=== PATIENT | male | born 1960 | race African-American/Black ===

== ENCOUNTER 2017-12-01 13:01 | Inpatient (IN) | payer MEDICARE, MEDICAID ==
[~2017-12-01] VITALS: Ht 177.8 cm; Wt 100.3 kg
[2017-12-01] MEDS ORDERED: ASPIRIN 81MG TABLET PO ONE (14:00)
[2017-12-01] MEDS ORDERED: FUROSEMIDE 40MG/4ML VIAL IV ONE (14:00)
[2017-12-01 14:19] LABS: MEAN PLATELET VOLUME 7.3 fl (7.4-10.4); RED CELL DISTRIBUTION WIDTH 18.6 % (11.6-14.6)
[2017-12-01 14:25] LABS: INR 1.1; PARTIAL THROMBOPLASTIN TIME 24.6 sec (23.4-31.0); PROTHROMBIN TIME 10.7 sec (9.1-11.1)
[2017-12-01 14:26] LABS: CHLORIDE 111 mEq/L (98-107); ETHANOL BLOOD < 10 mg/dL
[2017-12-01 14:46] LABS: HEMOGLOBIN. 7.6 g/dL (14.0-18.0)
[2017-12-01 14:47] LABS: HEMATOCRIT. 30.4 % (42.0-52.0); MEAN CORPUSCULAR HEMOGLOBIN 23.5 pg (28.0-32.0); MEAN CORPUSCULAR VOLUME 94.9 fL (80.0-94.0)
[2017-12-01 14:48] LABS: PLATELET 128 x1000/uL (130-400)
[2017-12-01 15:00] LABS: PLATELET ESTIMATE DECREASED
[2017-12-01 16:15] LABS: CLARITY URINE CLEAR (CLEAR); COLOR URINE YELLOW (YELLOW); KETONES URINE NEGATIVE (NEGATIVE); LEUKOCYTE ESTERASE URINE NEGATIVE (NEGATIVE); NITRITE URINE NEGATIVE (NEGATIVE); OCCULT BLOOD URINE NEGATIVE (NEGATIVE); PROTEIN URINE NEGATIVE (NEGATIVE); SPECIFIC GRAVITY URINE 1.011 (1.005-1.030); UROBILINOGEN URINE 0.2 E.U./dL (0.2-1.0)
[2017-12-01 16:36] LABS: *AMPHETAMINES SCREEN URINE NEGATIVE (NEGATIVE); *BARBITURATES SCREEN URINE NEGATIVE (NEGATIVE); *BENZODIAZEPINES SCREEN URINE NEGATIVE (NEGATIVE); *COCAINE SCREEN URINE NEGATIVE (NEGATIVE)
[2017-12-01 16:37] LABS: CANNABINOID URINE SCREEN NEGATIVE (NEGATIVE); METHADONE URINE SCREEN NEGATIVE (NEGATIVE); OPIATES URINE SCREEN NEGATIVE (NEGATIVE); PHENCYCLIDINE URINE SCREEN NEGATIVE (NEGATIVE)
[2017-12-01] MEDS ORDERED: ACETAMINOPHEN 650MG/20.3ML UDC GT PRN (18:45)
[2017-12-01] MEDS ORDERED: NA PHOS,M-B/NA PHOS,DI-BA ENEMA 118ML PR PRN (18:45)
[2017-12-01] MEDS ORDERED: HYDROCODONE/ACETAMINOPHEN 5/325MG TABLET PO PRN (18:45)
[2017-12-01] MEDS ORDERED: IPRATROPIUM/ALBUTEROL 0.5-3(2.5)MG/3ML NEB INH PRN (18:45)
[2017-12-01] MEDS ORDERED: DOCUSATE SODIUM 100MG CAPSULE PO PRN (18:45)
[2017-12-01] MEDS ORDERED: ONDANSETRON HCL 4MG/2ML INJ IV PRN (18:45)
[2017-12-01] MEDS ORDERED: MAGNESIUM/ALUMINUM HYDROXIDE/SIMETHICONE 30ML UDC PO PRN (18:45)
[2017-12-01] MEDS ORDERED: ACETAMINOPHEN 650MG SUPP PR PRN (18:45)
[2017-12-01 22:00] VITALS: BP 164/78
[2017-12-01 22:36] VITALS: BP 164/78
[2017-12-01] MEDS ORDERED: HYDR100T26 PO (22:53)
[2017-12-01] MEDS ORDERED: ASPI-986 PO (22:55)
[2017-12-01] MEDS ORDERED: NIFE100P10 PO ×2 (22:57→23:44)
[2017-12-01] MEDS ORDERED: LABE300T3 PO (23:00)
[2017-12-01] MEDS ORDERED: PRAV20TA57 PO (23:03)
[2017-12-01] MEDS ORDERED: HYDR25TA PO (23:03)
[2017-12-01] MEDS ORDERED: COLC0.6C3 PO (23:04)
[2017-12-01] MEDS ORDERED: MEDICATION NOT ON FORMULARY EA (Colchicine 0.6 MG) PO SCH (23:45)
[2017-12-01] MEDS ORDERED: LABETALOL HCL PO SCH (23:45)
[2017-12-01] MEDS ORDERED: NIFE20CA PO (23:46)
[2017-12-02] VITALS (21 sets, daily range): BP systolic 117–157; BP diastolic 62–88
[2017-12-02] MEDS: SODIUM CHLORIDE 0.9% INJ 3ML FLUSH IVF SCH ×4 (00:14→21:13)
[2017-12-02] MEDS: LABETALOL HCL 300MG TABLET PO SCH ×3 (06:45→21:13)
[2017-12-02 07:53] LABS: CHLORIDE 112 mEq/L (98-107)
[2017-12-02 07:58] LABS: HDL CHOLESTEROL 35 mg/dL (40-59); LDL CHOLESTEROL 136 mg/dL (5-100)
[2017-12-02 08:17] LABS: HEMATOCRIT. 29.6 % (42.0-52.0); HEMOGLOBIN. 7.4 g/dL (14.0-18.0); MEAN CORPUSCULAR HEMOGLOBIN 23.7 pg (28.0-32.0); MEAN CORPUSCULAR VOLUME 95.6 fL (80.0-94.0); RED BLOOD CELL COUNT 3.08 mill/uL (4.7-6.1)
[2017-12-02 08:19] LABS: MEAN PLATELET VOLUME 7.1 fl (7.4-10.4); PLATELET 128 x1000/uL (130-400); RED CELL DISTRIBUTION WIDTH 17.5 % (11.6-14.6)
[2017-12-02] MEDS ORDERED: COLCHICINE 0.6MG TABLET PO SCH (09:00)
[2017-12-02] MEDS ORDERED: FUROSEMIDE 40MG/4ML VIAL IV SCH (09:00)
[2017-12-02] MEDS: SODIUM CHLORIDE 0.45% 1,000 ML IV SCH ×2 (11:52→19:09)
[2017-12-02] MEDS: ALLOPURINOL 100 MG TABLET PO SCH (12:00)
[2017-12-02 14:09] LABS: PLATELET ESTIMATE DECREASED
[2017-12-02 15:49] LABS: CLARITY URINE CLEAR (CLEAR); COLOR URINE YELLOW (YELLOW); KETONES URINE NEGATIVE (NEGATIVE); LEUKOCYTE ESTERASE URINE NEGATIVE (NEGATIVE); NITRITE URINE NEGATIVE (NEGATIVE); OCCULT BLOOD URINE 1+ (NEGATIVE); PROTEIN URINE TRACE (NEGATIVE); SPECIFIC GRAVITY URINE 1.014 (1.005-1.030); UROBILINOGEN URINE 0.2 E.U./dL (0.2-1.0)
[2017-12-02] MEDS: ASPIRIN 81MG TABLET PO SCH (19:10)
[2017-12-02] MEDS ORDERED: MEDICATION NOT ON FORMULARY EA (Pravastatin Sodium 1 TAB) PO SCH (21:00)
[2017-12-02] MEDS: ATORVASTATIN CALCIUM 10MG TABLET PO SCH (21:13)
[2017-12-03] VITALS (49 sets, daily range): BP systolic 126–170; BP diastolic 63–103
[2017-12-03] MEDS: SODIUM CHLORIDE 0.45% 1,000 ML IV SCH ×3 (00:37→16:19)
[2017-12-03] MEDS: SODIUM CHLORIDE 0.9% INJ 3ML FLUSH IVF SCH ×3 (06:14→22:00)
[2017-12-03] MEDS: LABETALOL HCL 300MG TABLET PO SCH ×3 (06:14→20:38)
[2017-12-03] MEDS: ALLOPURINOL 100 MG TABLET PO SCH (09:48)
[2017-12-03] MEDS: ASPIRIN 81MG TABLET PO SCH (09:48)
[2017-12-03] MEDS: CEFEPIME 1,000 MG in DEXTROSE 5% WATER 50 ML IV SCH (15:21)
[2017-12-03] MEDS: CLONIDINE 0.1MG TABLET PO PRN (16:18)
[2017-12-03 16:30] LABS: CHLORIDE 111 mEq/L (98-107)
[2017-12-03 16:44] LABS: PHOSPHORUS 4.6 mg/dL (2.5-4.9)
[2017-12-03 16:48] LABS: CREATINE KINASE 1076 IU/L (39-308)
[2017-12-03 16:51] LABS: HEMATOCRIT. 31.6 % (42.0-52.0); HEMOGLOBIN. 8.8 g/dL (14.0-18.0); MEAN CORPUSCULAR VOLUME 96.5 fL (80.0-94.0); MEAN PLATELET VOLUME 7.2 fl (7.4-10.4); PLATELET 125 x1000/uL (130-400); RED BLOOD CELL COUNT 3.27 mill/uL (4.7-6.1); RED CELL DISTRIBUTION WIDTH 18.4 % (11.6-14.6)
[2017-12-03 17:09] LABS: PLATELET ESTIMATE DECREASED
[2017-12-03] MEDS: ATORVASTATIN CALCIUM 10MG TABLET PO SCH (20:37)
[2017-12-03] MEDS: ACETAMINOPHEN 325MG TABLET PO PRN (20:38)
[2017-12-04] VITALS (24 sets, daily range): BP systolic 132–165; BP diastolic 75–98
[2017-12-04] MEDS: SODIUM CHLORIDE 0.45% 1,000 ML IV SCH ×6 (02:35→23:30)
[2017-12-04] MEDS: SODIUM CHLORIDE 0.9% INJ 3ML FLUSH IVF SCH ×3 (06:06→22:00)
[2017-12-04] MEDS: LABETALOL HCL 300MG TABLET PO SCH ×3 (06:16→21:27)
[2017-12-04] MEDS: CEFEPIME 1,000 MG in DEXTROSE 5% WATER 50 ML IV SCH (09:00)
[2017-12-04] MEDS: ALLOPURINOL 100 MG TABLET PO SCH (09:00)
[2017-12-04] MEDS: ASPIRIN 81MG TABLET PO SCH (09:00)
[2017-12-04 09:51] LABS: HEMATOCRIT. 31.5 % (42.0-52.0); HEMOGLOBIN. 8.5 g/dL (14.0-18.0); MEAN CORPUSCULAR HEMOGLOBIN 25.8 pg (28.0-32.0); MEAN PLATELET VOLUME 7.1 fl (7.4-10.4); PLATELET 116 x1000/uL (130-400); RED BLOOD CELL COUNT 3.28 mill/uL (4.7-6.1)
[2017-12-04 09:56] LABS: CHLORIDE 112 mEq/L (98-107)
[2017-12-04 09:59] LABS: PHOSPHORUS 4.3 mg/dL (2.5-4.9)
[2017-12-04 10:55] LABS: RED CELL DISTRIBUTION WIDTH 17.6 % (11.6-14.6)
[2017-12-04 10:57] LABS: PLATELET ESTIMATE SLIGHTLY DECREASED
[2017-12-04] MEDS: ATORVASTATIN CALCIUM 10MG TABLET PO SCH (21:27)
[2017-12-05] VITALS (26 sets, daily range): BP systolic 116–167; BP diastolic 38–96
[2017-12-05] MEDS: CLONIDINE 0.1MG TABLET PO PRN (01:18)
[2017-12-05] MEDS: ACETAMINOPHEN 325MG TABLET PO PRN (04:35)
[2017-12-05] MEDS: SODIUM CHLORIDE 0.9% INJ 3ML FLUSH IVF SCH ×3 (06:00→21:46)
[2017-12-05] MEDS: SODIUM CHLORIDE 0.45% 1,000 ML IV SCH ×4 (06:10→15:04)
[2017-12-05] MEDS: LABETALOL HCL 300MG TABLET PO SCH ×3 (06:18→21:46)
[2017-12-05 07:40] LABS: PHOSPHORUS 3.6 mg/dL (2.5-4.9)
[2017-12-05 07:41] LABS: RED BLOOD CELL COUNT 2.61 mill/uL (4.7-6.1)
[2017-12-05 07:42] LABS: HEMOGLOBIN. 7.5 g/dL (14.0-18.0)
[2017-12-05 07:43] LABS: HEMATOCRIT. 24.6 % (42.0-52.0); MEAN CORPUSCULAR HEMOGLOBIN 26.3 pg (28.0-32.0); MEAN CORPUSCULAR VOLUME 96.6 fL (80.0-94.0); MEAN PLATELET VOLUME 7.6 fl (7.4-10.4); PLATELET 120 x1000/uL (130-400); RED CELL DISTRIBUTION WIDTH 17.5 % (11.6-14.6)
[2017-12-05 08:22] LABS: A/G RATIO 1.3 (0.7-1.7); ALBUMIN 3.7 g/dL (2.9-4.4); ALPHA-1-GLOBULIN 0.2 g/dL (0.0-0.4); ALPHA-2-GLOBULIN 0.8 g/dL (0.4-1.0); BETA GLOBULIN 0.9 g/dL (0.7-1.3); GAMMA GLOBULINS 0.9 g/dL (0.4-1.8); GLOBULIN TOTAL 2.8 g/dL (2.2-3.9); M-SPIKE Not Observed g/dL (Not Observed); TOTAL PROTEIN SERUM 6.5 g/dL (6.0-8.5)
[2017-12-05] MEDS: CEFEPIME 1,000 MG in DEXTROSE 5% WATER 50 ML IV SCH (08:26)
[2017-12-05] MEDS: ASPIRIN 81MG TABLET PO SCH (08:27)
[2017-12-05] MEDS: ALLOPURINOL 100 MG TABLET PO SCH (08:27)
[2017-12-05] MEDS ORDERED: KCL 20MEQ/100ML PREMIX 100 ML IV NR (08:30)
[2017-12-05] MEDS ORDERED: NON FORMULARY PATIENT HOME MED EA PO SCH (09:00)
[2017-12-05 11:43] LABS: PLATELET ESTIMATE DECREASED
[2017-12-05] MEDS: CHLORAMBUCIL 2 MG PO SCH (13:35)
[2017-12-05] MEDS: ATORVASTATIN CALCIUM 10MG TABLET PO SCH (21:45)
[2017-12-06] VITALS (20 sets, daily range): BP systolic 121–175; BP diastolic 72–94
[2017-12-06] MEDS: SODIUM CHLORIDE 0.45% 1,000 ML IV SCH ×4 (01:04→20:44)
[2017-12-06] MEDS: SODIUM CHLORIDE 0.9% INJ 3ML FLUSH IVF SCH ×3 (06:00→20:44)
[2017-12-06] MEDS: LABETALOL HCL 300MG TABLET PO SCH ×3 (06:43→20:43)
[2017-12-06 07:36] LABS: HEMATOCRIT. 24.9 % (42.0-52.0); HEMOGLOBIN. 7.5 g/dL (14.0-18.0); MEAN CORPUSCULAR HEMOGLOBIN 26.6 pg (28.0-32.0); MEAN CORPUSCULAR VOLUME 96.3 fL (80.0-94.0); RED BLOOD CELL COUNT 2.64 mill/uL (4.7-6.1); RED CELL DISTRIBUTION WIDTH 17.7 % (11.6-14.6)
[2017-12-06 07:37] LABS: MEAN PLATELET VOLUME 7.8 fl (7.4-10.4); PLATELET 115 x1000/uL (130-400)
[2017-12-06 08:14] LABS: PLATELET ESTIMATE DECREASED
[2017-12-06] MEDS: ASPIRIN 81MG TABLET PO SCH (09:07)
[2017-12-06] MEDS: ALLOPURINOL 100 MG TABLET PO SCH (09:07)
[2017-12-06] MEDS: CEFEPIME 1,000 MG in DEXTROSE 5% WATER 50 ML IV SCH (09:07)
[2017-12-06] MEDS: CHLORAMBUCIL 2 MG PO SCH (10:54)
[2017-12-06] MEDS: ATORVASTATIN CALCIUM 10MG TABLET PO SCH (20:43)
[2017-12-06] MEDS ORDERED: ATOR10TA PO (22:42)
[2017-12-06] MEDS ORDERED: ASPI-1160 PO (22:43)
[2017-12-06] MEDS ORDERED: ALLO100T PO (22:43)
[2017-12-06] MEDS ORDERED: LABE300T3 PO (22:43)
[2017-12-06] MEDS ORDERED: CHLO2TAB PO (22:43)
[2017-12-06] MEDS ORDERED: CEFE1FRO2 IV (22:45)
[2017-12-07] VITALS: BP 156/87
== END 2017-12-07 00:29 | disposition short-term general hospital (02) | DRG 64 ==
LOC: ER 13:01 → EDBEDREQTM 16:25 → 5WST 16:25 → EDBEDREQ 16:25 → 5WST 18:38 → UNDOADMIN 18:38 → ENRESERV 19:34 → MICUSO 12-02 13:00 → 5EST 12-06 11:37
PROVIDERS: ADMIT Family Medicine; ATTEND Family Medicine
DX: I63.9 Cerebral infarction, unspecified (principal); G93.41 Metabolic encephalopathy; N17.0 Acute kidney failure with tubular necrosis; E87.0 Hyperosmolality and hypernatremia; C92.10 Chronic myeloid leukemia, BCR/ABL-positive, not having achieved remission; N39.0 Urinary tract infection, site not specified; M62.82 Rhabdomyolysis; G81.91 Hemiplegia, unspecified affecting right dominant side; B96.20 Unspecified Escherichia coli [E. coli] as the cause of diseases classified elsewhere; D63.0 Anemia in neoplastic disease; R79.89 Other specified abnormal findings of blood chemistry; R74.8 Abnormal levels of other serum enzymes; I10 Essential (primary) hypertension; E78.5 Hyperlipidemia, unspecified; I12.9 Hypertensive chronic kidney disease with stage 1 through stage 4 chronic kidney disease, or unspecified chronic kidney disease; L89.90 Pressure ulcer of unspecified site, unspecified stage; M10.9 Gout, unspecified; N28.1 Cyst of kidney, acquired; D69.6 Thrombocytopenia, unspecified; D64.9 Anemia, unspecified; N18.9 Chronic kidney disease, unspecified; Z86.73 Personal history of transient ischemic attack (TIA), and cerebral infarction without residual deficits; Z82.49 Family history of ischemic heart disease and other diseases of the circulatory system
CPT/HCPCS: 36415; 70551; 71045; 71250; 72146; 72148; 74176; 76770; 80048; 80061; 80305; 82550; 83615; 83735; 83880; 84100; 84134; 84155; 84165; 84484; 84550; 85384; 87077; 87186; 92523; 93005; 93306; 93880; 93970; 96374; 97110; 97163; 97167; 97530; 97535; 99285; G0482; J0692; J1940; J3480; J7060; A4315

== ENCOUNTER 2019-04-03 16:41 | Inpatient (IN) | payer MEDICARE, MEDICAID ==
[~2019-04-03] VITALS: Ht 177.8 cm; Wt 88.0 kg
[~2019-04-03 16:41] MED LIST: ALLO100T PO; ASPI-1160 PO; ASPI-986 PO; ATOR10TA PO; FURO-151 PO; HYDR100T26 PO; LABE300T3 PO; NIFE20CA PO; PRAV20TA57 PO; [UNRECOGNIZED DRUG - CODE] PO
[2019-04-03] MEDS ORDERED: ONDANSETRON HCL 4MG/2ML INJ IV STA (17:04)
[2019-04-03 17:23] LABS: PROTHROMBIN TIME 10.9 sec (9.6-11.0)
[2019-04-03 17:24] LABS: HEMATOCRIT. 21.8 % (42.0-52.0); MEAN CORPUSCULAR HEMOGLOBIN 25.4 pg (28.0-32.0); MEAN CORPUSCULAR VOLUME 103.4 fL (80.0-94.0); MEAN PLATELET VOLUME 7.2 fl (7.4-10.4); PLATELET 59 x1000/uL (130-400); RED BLOOD CELL COUNT 2.11 mill/uL (4.7-6.1); RED CELL DISTRIBUTION WIDTH 31.7 % (11.6-14.6)
[2019-04-03 17:25] LABS: CHLORIDE 119 mEq/L (98-107)
[2019-04-03 17:29] LABS: ETHANOL BLOOD < 10 mg/dL
[2019-04-03 17:32] LABS: HEMOGLOBIN. 5.4 g/dL (14.0-18.0); LDL CHOLESTEROL 83 mg/dL (5-100)
[2019-04-03 18:39] LABS: PLATELET ESTIMATE DECREASED
[2019-04-03] MEDS ORDERED: SODIUM BICARBONATE 8.4% 1 MEQ/ML 50ML SYR IV SCH (18:45)
[2019-04-03] MEDS ORDERED: INSULIN REGULAR (HUMULIN R) 300UNITS/3ML IV SCH (18:45)
[2019-04-03] MEDS ORDERED: CALCIUM CHLORIDE 1GM/10ML SYR IV SCH (18:45)
[2019-04-03] MEDS ORDERED: DEXTROSE 50% WATER 50ML SYRINGE IV SCH (18:45)
[2019-04-03] MEDS ORDERED: FUROSEMIDE 20MG/2ML VIAL IVP ONE (19:00)
[2019-04-03] MEDS ORDERED: IOHEXOL-350 100 ML BOTTLE ONE (22:28)
[2019-04-03] MEDS ORDERED: DEXTROSE 50% WATER 50ML SYRINGE IV PRN (23:00)
[2019-04-04 02:07] LABS: HEMATOCRIT. 21.7 % (42.0-52.0); MEAN CORPUSCULAR HEMOGLOBIN 23.9 pg (28.0-32.0); MEAN CORPUSCULAR VOLUME 97.1 fL (80.0-94.0); MEAN PLATELET VOLUME 6.8 fl (7.4-10.4); PLATELET 52 x1000/uL (130-400); RED BLOOD CELL COUNT 2.24 mill/uL (4.7-6.1); RED CELL DISTRIBUTION WIDTH 25.3 % (11.6-14.6)
[2019-04-04 02:11] LABS: CLARITY URINE CLEAR (CLEAR); COLOR URINE YELLOW (YELLOW); KETONES URINE NEGATIVE (NEGATIVE); LEUKOCYTE ESTERASE URINE NEGATIVE (NEGATIVE); NITRITE URINE NEGATIVE (NEGATIVE); OCCULT BLOOD URINE NEGATIVE (NEGATIVE); PROTEIN URINE NEGATIVE (NEGATIVE); SPECIFIC GRAVITY URINE 1.013 (1.005-1.030); UROBILINOGEN URINE 0.2 E.U./dL (0.2-1.0)
[2019-04-04 02:39] LABS: *AMPHETAMINES SCREEN URINE NEGATIVE (NEGATIVE); *BARBITURATES SCREEN URINE NEGATIVE (NEGATIVE); *BENZODIAZEPINES SCREEN URINE NEGATIVE (NEGATIVE); *COCAINE SCREEN URINE NEGATIVE (NEGATIVE); CANNABINOID URINE SCREEN NEGATIVE (NEGATIVE); METHADONE URINE SCREEN NEGATIVE (NEGATIVE); OPIATES URINE SCREEN NEGATIVE (NEGATIVE); PHENCYCLIDINE URINE SCREEN NEGATIVE (NEGATIVE)
[2019-04-04 03:14] LABS: HEMOGLOBIN. 5.3 g/dL (14.0-18.0)
[2019-04-04 06:10] LABS: PLATELET ESTIMATE DECREASED
[2019-04-04] MEDS ORDERED: ONDANSETRON HCL 4MG/2ML INJ IV PRN (09:45)
[2019-04-04] MEDS ORDERED: ACETAMINOPHEN 325MG TABLET PO PRN (09:45)
[2019-04-04 20:16] LABS: T4 FREE 0.98 ng/dL (0.76-1.46)
[2019-04-04 20:17] LABS: HEMATOCRIT. 31.2 % (42.0-52.0); HEMOGLOBIN. 9.3 g/dL (14.0-18.0); MEAN CORPUSCULAR HEMOGLOBIN 26.4 pg (28.0-32.0); MEAN CORPUSCULAR VOLUME 88.9 fL (80.0-94.0); MEAN PLATELET VOLUME 6.9 fl (7.4-10.4); PLATELET 52 x1000/uL (130-400); RED BLOOD CELL COUNT 3.51 mill/uL (4.7-6.1)
[2019-04-04 20:37] LABS: FOLIC ACID (FOLATE) SERUM 11.8 ng/mL (>5.38)
[2019-04-04 21:01] LABS: PLATELET ESTIMATE DECREASED
[2019-04-04 22:00] VITALS: BP 176/90
[2019-04-04 23:00] VITALS: BP 166/76
[2019-04-05] VITALS (8 sets, daily range): BP systolic 126–180; BP diastolic 78–106
[2019-04-05] MEDS ORDERED: CLONIDINE 0.2MG TABLET PO PRN
[2019-04-05] MEDS ORDERED: HYDRALAZINE 20MG/ML VIAL IV PRN (06:30)
[2019-04-05 07:18] LABS: HEMATOCRIT. 30.9 % (42.0-52.0); HEMOGLOBIN. 8.8 g/dL (14.0-18.0); MEAN CORPUSCULAR HEMOGLOBIN 26.3 pg (28.0-32.0); MEAN CORPUSCULAR VOLUME 92.1 fL (80.0-94.0); MEAN PLATELET VOLUME 7.2 fl (7.4-10.4); RED BLOOD CELL COUNT 3.35 mill/uL (4.7-6.1); RED CELL DISTRIBUTION WIDTH 20.2 % (11.6-14.6)
[2019-04-05 07:20] LABS: PHOSPHORUS 5.1 mg/dL (2.5-4.9)
[2019-04-05 07:52] LABS: PLATELET 50 x1000/uL (130-400)
[2019-04-05] MEDS ORDERED: HYDRALAZINE HCL 50MG TABLET PO SCH (09:00)
[2019-04-05] MEDS ORDERED: AMLODIPINE 5MG TABLET PO SCH (09:00)
[2019-04-05] MEDS ORDERED: ALLOPURINOL 100 MG TABLET PO SCH (10:11)
[2019-04-05] MEDS ORDERED: DEXTROSE 5% WATER 1,000 ML IV SCH (10:12)
[2019-04-05 20:30] LABS: PLATELET ESTIMATE DECREASED
== END 2019-04-05 15:12 | disposition home or self-care (01) | DRG 682 ==
LOC: ER 17:21 → EDBEDREQSVC 21:09 → EDBEDREQTM 21:09 → EDBEDREQ 21:09 → EDBEDREQSVC 04-04 18:44 → ENRESERV 04-04 20:47 → 3WST 04-04 21:03
PROVIDERS: ADMIT Internal Medicine; ATTEND Internal Medicine
PROC: 30233N1 Transfusion of Nonautologous Red Blood Cells into Peripheral Vein, Percutaneous Approach (ICD-10-PCS; principal; 2019-04-03)
DX: N17.0 Acute kidney failure with tubular necrosis (principal); I50.23 Acute on chronic systolic (congestive) heart failure; C91.10 Chronic lymphocytic leukemia of B-cell type not having achieved remission; E87.0 Hyperosmolality and hypernatremia; G93.40 Encephalopathy, unspecified; I13.0 Hypertensive heart and chronic kidney disease with heart failure and stage 1 through stage 4 chronic kidney disease, or unspecified chronic kidney disease; G81.91 Hemiplegia, unspecified affecting right dominant side; I42.9 Cardiomyopathy, unspecified; N18.4 Chronic kidney disease, stage 4 (severe); D69.59 Other secondary thrombocytopenia; E16.2 Hypoglycemia, unspecified; E78.5 Hyperlipidemia, unspecified; E87.5 Hyperkalemia; E87.8 Other disorders of electrolyte and fluid balance, not elsewhere classified; M10.9 Gout, unspecified; R26.89 Other abnormalities of gait and mobility; R47.81 Slurred speech; D64.9 Anemia, unspecified; Z82.49 Family history of ischemic heart disease and other diseases of the circulatory system; Z79.899 Other long term (current) drug therapy
CPT/HCPCS: 36415; 70496; 70498; 70551; 71045; 76770; 80048; 80053; 80061; 80305; 80320; 81003; 82607; 82746; 82962; 83036; 83721; 83735; 84100; 84439; 84443; 84481; 84484; 84550; 85025; 86850; 86900; 86920; 93005; 93880; 93971; 96374; 96375; 96376; 99291; J0360; J1815; J1940; J2405; J3490; P9016; P9021; Q9967; G0480

== ENCOUNTER 2023-08-07 17:43 | Emergency (ER) | payer MEDICARE, MEDICAID ==
[~2023-08-07] VITALS: Ht 177.8 cm; Wt 84.0 kg
[~2023-08-07 17:43] MED LIST changes: -ALLO100T PO; -ASPI-1160 PO; +ASPI-1497 PO; -ASPI-986 PO; -ATOR10TA PO; +IBRU140C PO; +IBRU420T PO; -LABE300T3 PO; +LABE300T36 PO; +LOSA25TA26 PO
[2023-08-07 17:45] VITALS: O2SAT 98
[2023-08-07 19:10] LABS: BASOPHILS % 0.7 % (0.0-2.0); EOSINOPHILS % 0.8 % (0.0-5.0); HEMOGLOBIN. 13.3 g/dL (14.0-18.0); LYMPHOCYTES % 49.2 % (20.0-50.0); MEAN CORPUSCULAR HEMOGLOBIN 32.1 pg (28.0-32.0); MEAN CORPUSCULAR HGB CONC 33.2 g/dL (31.0-37.0); MEAN CORPUSCULAR VOLUME 96.9 fL (80.0-94.0); MEAN PLATELET VOLUME 7.8 fl (7.4-10.4); MONOCYTES % 6.9 % (2.0-8.0); NEUTROPHILS % 42.4 % (40.0-76.0); PLATELET 186 x1000/uL (130-400); RED BLOOD CELL COUNT 4.13 mill/uL (4.7-6.1); RED CELL DISTRIBUTION WIDTH 16.6 % (11.6-14.6)
[2023-08-07 19:15] LABS: CHLORIDE 97 mEq/L (98-107); POTASSIUM 4.6 mEq/L (3.5-5.1); SODIUM 139 mEq/L (136-145)
[2023-08-07 19:16] LABS: CARBON DIOXIDE 28 mEq/L (21-32)
[2023-08-07 19:17] LABS: CALCIUM 8.3 mg/dL (8.7-10.4)
[2023-08-07 19:21] LABS: GLUCOSE 86 mg/dL (70-105); UREA NITROGEN BLOOD 39 mg/dL (9-23)
[2023-08-07 19:23] LABS: ALANINE AMINOTRANSFERASE 16 IU/L (10-49); ALBUMIN 4.4 g/dL (3.2-4.8); ASPARTATE AMINOTRANSFERASE 22 IU/L (<34)
[2023-08-07 19:24] LABS: BILIRUBIN TOTAL 0.3 mg/dL (0.1-1.0)
[2023-08-07 19:28] LABS: CREATININE 9.1 mg/dL (0.6-1.3)
[2023-08-07 20:07] LABS: PROTHROMBIN TIME 11.4 sec (9.6-11.0)
[2023-08-07 20:10] VITALS: TEMP 97.5
[2023-08-08 05:30] VITALS: BP 153/63; PULSE 76; RESP 12
== END 2023-08-08 05:35 | disposition home or self-care (01) ==
LOC: ER 17:43
DX: T82.9XXA Unspecified complication of cardiac and vascular prosthetic device, implant and graft, initial encounter (principal); I12.0 Hypertensive chronic kidney disease with stage 5 chronic kidney disease or end stage renal disease; N18.6 End stage renal disease; Z79.82 Long term (current) use of aspirin; Z79.899 Other long term (current) drug therapy; Z98.890 Other specified postprocedural states; Z86.73 Personal history of transient ischemic attack (TIA), and cerebral infarction without residual deficits; Y92.89 Other specified places as the place of occurrence of the external cause
CPT/HCPCS: 36415; 80053; 85025; 86850; 86900; 99291